=== PATIENT | female | born 1985 | race Caucasian/White ===

== ENCOUNTER 2021-11-24 13:41 | Inpatient (IN) ==
[2021-11-24] MEDS ORDERED: NS 0.9% 1000 ml BAG 1,000 ML IV ONE (16:03)
[2021-11-24 16:47] LABS: ABS Lymphocytes 1.4 10^3/ul (1.0-4.8); ABS Monocytes 0.8 10^3/ul (0-0.8); ABS Neutrophils 4.3 10^3/ul (1.5-7.7); Eosinophil % 0.6 %; Hematocrit 38 % (35-47); Hemoglobin 12.2 g/dL (12.0-16.0); Lymphocyte % 20.9 %; Mean Corpuscular HGB Conc 32 g/dL (31-36); Mean Corpuscular Hemoglobin 26 pg (27-31); Mean Corpuscular Volume 81 fL (80-97); Mean Platelet Volume 8.1 fL (7.4-10.4); Platelet Count 229 10^3/uL (150-450); Red Blood Count 4.73 10^6 /uL (3.70-4.87); Red Cell Distribution Width 14 % (10-15); White Blood Count 6.6 10^3/uL (3.5-10.8)
[2021-11-24 17:19] LABS: Albumin 3.5 g/dL (3.2-5.2); Albumin/Globulin Ratio 1.4 (1-3); C Reactive Protein 147.14 mg/L (<8.01); Calcium 7.6 mg/dL (8.6-10.3); Globulin 2.5 g/dL (2-4); Potassium 3.9 mmol/L (3.5-5.0); Total Bilirubin 0.8 mg/dL (0.2-1.0)
[2021-11-24] MEDS ORDERED: Prochlorperazine 5 mg/ml 2 ml VIAL (10 mg) IV ONE (17:30)
[2021-11-24] MEDS ORDERED: Iohexol 300 (CONTRAST) 10 ML SDV IV ONE (17:33)
[2021-11-24] MEDS ORDERED: Acetaminophen IV 1 GM/100ML 100 ML IV ONE (17:45)
[2021-11-24] MEDS ORDERED: Magnesium Hydroxide LIQ 30 ML UDC PO ONE (19:25)
[2021-11-24] MEDS ORDERED: Senna TAB 8.6 mg TAB PO PRN (19:27)
[2021-11-24] MEDS ORDERED: Remdesivir 100 mg Vial 100 MG in NS 0.9% 250 ml 230 ML IV SCH (19:30)
[2021-11-24] MEDS: D5NS 0.9% 1000 ml BAG 1,000 ML IV SCH (19:34)
[2021-11-24] MEDS ORDERED: RITONAVIR PO SCH (21:00)
[2021-11-24] MEDS ORDERED: NIRMATRELVIR PO SCH (21:00)
[2021-11-24] MEDS ORDERED: Remdesivir 100 mg Vial 200 MG in NS 0.9% 250 ml 210 ML IV ONE (22:00)
[2021-11-24] MEDS: Enoxaparin 40 MG/0.4 ML SYR SUBCUT SCH (22:23)
[2021-11-24] MEDS ORDERED: Dextrose 50% Syringe 50 ml 25 GM/50 ML SYRINGE IV PUSH PRN (23:34)
[2021-11-25] MEDS: D5NS 0.9% 1000 ml BAG 1,000 ML IV SCH ×3 (03:54→22:03)
[2021-11-25 07:05] LABS: Hematocrit 34 % (35-47); Hemoglobin 11.1 g/dL (12.0-16.0); Mean Corpuscular HGB Conc 33 g/dL (31-36); Mean Corpuscular Hemoglobin 26 pg (27-31); Mean Corpuscular Volume 79 fL (80-97); Mean Platelet Volume 8.1 fL (7.4-10.4); Platelet Count 227 10^3/uL (150-450); Red Blood Count 4.26 10^6 /uL (3.70-4.87); Red Cell Distribution Width 14 % (10-15); White Blood Count 2.8 10^3/uL (3.5-10.8)
[2021-11-25 07:17] LABS: Albumin/Globulin Ratio 1.4 (1-3); Calcium 7.2 mg/dL (8.6-10.3); Globulin 2.2 g/dL (2-4); Potassium 3.7 mmol/L (3.5-5.0); Total Bilirubin 0.4 mg/dL (0.2-1.0); Total Protein 5.2 g/dL (6.4-8.9); eGFR CKD-EPI 128.7 (>60)
[2021-11-25 08:44] LABS: ABS Eosinophils 0.1 10^3/ul (0-0.6); ABS Lymphocytes 1.6 10^3/ul (1.0-4.8); ABS Monocytes 0.4 10^3/ul (0-0.8); ABS Neutrophils 0.7 10^3/ul (1.5-7.7); Eosinophil % 4.9 %; Lymphocyte % 55.9 %; Nucleated Red Blood Cells % 0.3
[2021-11-25] MEDS: Magnesium Hydroxide LIQ 30 ML UDC PO SCH ×2 (08:46→21:58)
[2021-11-25] MEDS: Polyethylene Glycol 3350 17 GM PACKET PO SCH (09:35)
[2021-11-25 13:20] LABS: Magnesium 1.7 mg/dL (1.9-2.7); Phosphorus 1.8 mg/dL (2.5-5.0)
[2021-11-25] MEDS ORDERED: CALCIUM GLUCONATE 1GM/50ML NS 1 GM/50 ML BAG IV ONE (13:30)
[2021-11-25] MEDS ORDERED: Potassium Acid Phos 500 mg TAB PO ONE (13:37)
[2021-11-25] MEDS ORDERED: Magnesium Sulfate 2 gm BAG 2 GM/50 ML BAG IVPB ONE (13:44)
[2021-11-25 13:47] LABS: Vitamin D Total 25(OH) 9.2 ng/mL (20-50)
[2021-11-25] MEDS ORDERED: Cholecalciferol (VIT D3) 50,000 UNIT CAP (NF) PO SCH (14:00)
[2021-11-25] MEDS ORDERED: Potassium & Sodium Phos 250 mg = 1 PACKET PO ONE (15:46)
[2021-11-25] MEDS ORDERED: Potassium Chlor 20 meq TAB.ER PO ONE (15:47)
[2021-11-25] MEDS ORDERED: Remdesivir 100 mg Vial 100 MG in NS 0.9% 250 ml 230 ML IV ONE (18:00)
[2021-11-25] MEDS ORDERED: Senna TAB 8.6 mg TAB PO SCH (21:00)
[2021-11-25] MEDS: Enoxaparin 40 MG/0.4 ML SYR SUBCUT SCH (21:58)
[2021-11-26] MEDS ORDERED: Saline NASAL SPRAY 0.65% BTL BOTH NARES PRN (05:16)
[2021-11-26] MEDS: D5NS 0.9% 1000 ml BAG 1,000 ML IV SCH ×3 (06:07→18:15)
[2021-11-26 06:14] LABS: Hematocrit 34 % (35-47); Hemoglobin 11.2 g/dL (12.0-16.0); Mean Corpuscular HGB Conc 33 g/dL (31-36); Mean Corpuscular Hemoglobin 26 pg (27-31); Mean Corpuscular Volume 79 fL (80-97); Mean Platelet Volume 8.1 fL (7.4-10.4); Platelet Count 253 10^3/uL (150-450); Red Blood Count 4.26 10^6 /uL (3.70-4.87); Red Cell Distribution Width 14 % (10-15); White Blood Count 3.6 10^3/uL (3.5-10.8)
[2021-11-26 06:28] LABS: Albumin 3.3 g/dL (3.2-5.2); Albumin/Globulin Ratio 1.7 (1-3); Calcium 7.4 mg/dL (8.6-10.3); Phosphorus 1.4 mg/dL (2.5-5.0); Potassium 3.5 mmol/L (3.5-5.0); Total Bilirubin 0.3 mg/dL (0.2-1.0); Total Protein 5.3 g/dL (6.4-8.9); eGFR CKD-EPI 133.1 (>60)
[2021-11-26] MEDS ORDERED: Potassium Chlor 20 meq TAB.ER PO ONE (06:50)
[2021-11-26 08:14] LABS: ABS Eosinophils 0.1 10^3/ul (0-0.6); ABS Lymphocytes 2.3 10^3/ul (1.0-4.8); ABS Monocytes 0.4 10^3/ul (0-0.8); ABS Neutrophils 0.8 10^3/ul (1.5-7.7); Eosinophil % 3.6 %; Lymphocyte % 62.4 %; Nucleated Red Blood Cells % 0.2
[2021-11-26] MEDS ORDERED: POTASSIUM PHOSPHATE IVPB ONE (09:00)
[2021-11-26] MEDS ORDERED: Potassium & Sodium Phos 250 mg = 1 PACKET PO SCH ×2 (09:00)
[2021-11-26] MEDS ORDERED: NS IVPB ONE (09:00)
[2021-11-26] MEDS: Magnesium Hydroxide LIQ 30 ML UDC PO SCH ×3 (09:15→19:39)
[2021-11-26] MEDS: Polyethylene Glycol 3350 17 GM PACKET PO SCH (09:15)
[2021-11-26] MEDS: Potassium & Sodium Phos 250 mg = 1 PACKET PO SCH ×2 (09:15→12:33)
[2021-11-26] MEDS: Ondansetron 4 mg VIAL 2 MG/ML 2 ml VIAL IV PRN ×2 (09:36→14:31)
[2021-11-26] MEDS ORDERED: Remdesivir 100 mg Q24H MAINTENANCE DOSING IV ONE (14:00)
[2021-11-26] MEDS ORDERED: Acetaminophen IV 1 GM/100ML 100 ML IV PRN (17:17)
[2021-11-26] MEDS ORDERED: Polyethylene Glycol 3350 17 GM PACKET PO PRN (17:19)
[2021-11-26] MEDS ORDERED: Senna TAB 8.6 mg TAB PO PRN (17:20)
[2021-11-26 17:48] LABS: Albumin 3.6 g/dL (3.2-5.2); Albumin/Globulin Ratio 1.6 (1-3); Calcium 7.9 mg/dL (8.6-10.3); Direct Bilirubin 0.1 mg/dL (0.03-0.18); Globulin 2.3 g/dL (2-4); Indirect Bilirubin 0.3 mg/dL (0.3-1.0); Phosphorus 3.5 mg/dL (2.5-5.0); Potassium 4.3 mmol/L (3.5-5.0); Total Bilirubin 0.4 mg/dL (0.2-1.0); Total Protein 5.9 g/dL (6.4-8.9); eGFR CKD-EPI 128.7 (>60)
[2021-11-26] MEDS: Pantoprazole VIAL 40 MG VIAL IV SCH (22:45)
[2021-11-26] MEDS: Enoxaparin 40 MG/0.4 ML SYR SUBCUT SCH (22:48)
[2021-11-27] MEDS: D5NS 0.9% 1000 ml BAG 1,000 ML IV SCH ×2 (04:27→14:52)
[2021-11-27 05:54] LABS: ABS Eosinophils 0.1 10^3/ul (0-0.6); ABS Lymphocytes 2.3 10^3/ul (1.0-4.8); ABS Monocytes 0.4 10^3/ul (0-0.8); ABS Neutrophils 0.8 10^3/ul (1.5-7.7); Eosinophil % 3.5 %; Hematocrit 35 % (35-47); Hemoglobin 11.3 g/dL (12.0-16.0); Lymphocyte % 62.8 %; Mean Corpuscular HGB Conc 32 g/dL (31-36); Mean Corpuscular Hemoglobin 26 pg (27-31); Mean Corpuscular Volume 80 fL (80-97); Mean Platelet Volume 8.1 fL (7.4-10.4); Nucleated Red Blood Cells % 0.2; Platelet Count 246 10^3/uL (150-450); Red Blood Count 4.35 10^6 /uL (3.70-4.87); Red Cell Distribution Width 14 % (10-15); White Blood Count 3.7 10^3/uL (3.5-10.8)
[2021-11-27 06:03] LABS: Albumin 2.9 g/dL (3.2-5.2); Albumin/Globulin Ratio 1.4 (1-3); Calcium 7.4 mg/dL (8.6-10.3); Direct Bilirubin 0.1 mg/dL (0.03-0.18); Globulin 2.1 g/dL (2-4); Indirect Bilirubin 0.2 mg/dL (0.3-1.0); Magnesium 1.9 mg/dL (1.9-2.7); Phosphorus 2.6 mg/dL (2.5-5.0); Potassium 3.7 mmol/L (3.5-5.0); Total Bilirubin 0.3 mg/dL (0.2-1.0); eGFR CKD-EPI 131.6 (>60)
[2021-11-27] MEDS: Pantoprazole VIAL 40 MG VIAL IV SCH ×2 (09:11→22:46)
[2021-11-27] MEDS: Ondansetron 4 mg VIAL 2 MG/ML 2 ml VIAL IV PRN (09:11)
[2021-11-27] MEDS: Magnesium Hydroxide LIQ 30 ML UDC PO SCH ×2 (09:17→20:41)
[2021-11-27] MEDS: Potassium & Sodium Phos 250 mg = 1 PACKET PO SCH ×3 (09:18→20:36)
[2021-11-27] MEDS: Remdesivir 100 mg Q24H MAINTENANCE DOSING IV SCH (09:31)
[2021-11-27] MEDS: Morphine 2 MG/ML SYRINGE IV PRN ×2 (12:34→22:46)
[2021-11-27] MEDS: Calcium Carb (TUMS) 500 mg CHEW TAB PO SCH ×2 (17:22→20:42)
[2021-11-27] MEDS: Enoxaparin 40 MG/0.4 ML SYR SUBCUT SCH (20:45)
[2021-11-28] MEDS: D5NS 0.9% 1000 ml BAG 1,000 ML IV SCH ×2 (02:36→13:11)
[2021-11-28] MEDS: Ondansetron 4 mg VIAL 2 MG/ML 2 ml VIAL IV PRN ×3 (07:42→23:11)
[2021-11-28] MEDS: Pantoprazole VIAL 40 MG VIAL IV SCH ×2 (07:44→20:34)
[2021-11-28 09:14] LABS: ABS Eosinophils 0.1 10^3/ul (0-0.6); ABS Lymphocytes 2.1 10^3/ul (1.0-4.8); ABS Monocytes 0.4 10^3/ul (0-0.8); ABS Neutrophils 1.5 10^3/ul (1.5-7.7); Eosinophil % 3.5 %; Hematocrit 35 % (35-47); Hemoglobin 11.6 g/dL (12.0-16.0); Lymphocyte % 50.6 %; Mean Corpuscular HGB Conc 33 g/dL (31-36); Mean Corpuscular Hemoglobin 26 pg (27-31); Mean Corpuscular Volume 80 fL (80-97); Mean Platelet Volume 7.4 fL (7.4-10.4); Platelet Count 298 10^3/uL (150-450); Red Cell Distribution Width 14 % (10-15); White Blood Count 4.2 10^3/uL (3.5-10.8)
[2021-11-28 09:49] LABS: Calcium 7.5 mg/dL (8.6-10.3); Potassium 3.3 mmol/L (3.5-5.0); eGFR CKD-EPI 132.3 (>60)
[2021-11-28] MEDS: Magnesium Hydroxide LIQ 30 ML UDC PO SCH ×2 (10:19→20:30)
[2021-11-28] MEDS: Calcium Carb (TUMS) 500 mg CHEW TAB PO SCH ×2 (10:21→20:28)
[2021-11-28] MEDS: Potassium & Sodium Phos 250 mg = 1 PACKET PO SCH ×4 (10:21→20:25)
[2021-11-28] MEDS: Morphine 2 MG/ML SYRINGE IV PRN ×3 (10:59→20:33)
[2021-11-28 11:41] LABS: Magnesium 1.7 mg/dL (1.9-2.7); Phosphorus 2.2 mg/dL (2.5-5.0)
[2021-11-28] MEDS ORDERED: Magnesium Sulfate IV 3 GM in NS 0.9% 100 ml BAG 100 ML IVPB ONE (12:02)
[2021-11-28] MEDS ORDERED: Potassium Chloride LIQUID 20 MEQ/15 ML LIQUID PO ONE ×2 (12:03→12:16)
[2021-11-28] MEDS: Remdesivir 100 mg Q24H MAINTENANCE DOSING IV SCH (12:32)
[2021-11-28] MEDS ORDERED: Magnesium Sulfate 2 GM IV (Premix) IVPB ONE (13:00)
[2021-11-28] MEDS ORDERED: Magnesium Sulfate 1 GM IV 1 GM/100 ML BAG IV ONE (14:00)
[2021-11-28] MEDS: Enoxaparin 40 MG/0.4 ML SYR SUBCUT SCH (20:37)
[2021-11-29] MEDS: D5NS 0.9% 1000 ml BAG 1,000 ML IV SCH (04:54)
[2021-11-29 07:50] LABS: ABS Eosinophils 0.1 10^3/ul (0-0.6); ABS Lymphocytes 1.8 10^3/ul (1.0-4.8); ABS Monocytes 0.5 10^3/ul (0-0.8); ABS Neutrophils 1.7 10^3/ul (1.5-7.7); Eosinophil % 3.4 %; Hematocrit 36 % (35-47); Hemoglobin 11.5 g/dL (12.0-16.0); Lymphocyte % 44.3 %; Mean Corpuscular HGB Conc 32 g/dL (31-36); Mean Corpuscular Hemoglobin 26 pg (27-31); Mean Corpuscular Volume 79 fL (80-97); Mean Platelet Volume 7.6 fL (7.4-10.4); Platelet Count 320 10^3/uL (150-450); Red Blood Count 4.49 10^6 /uL (3.70-4.87); Red Cell Distribution Width 14 % (10-15); White Blood Count 4.2 10^3/uL (3.5-10.8)
[2021-11-29 08:01] LABS: Calcium 7.4 mg/dL (8.6-10.3); Magnesium 1.9 mg/dL (1.9-2.7); Phosphorus 2.4 mg/dL (2.5-5.0); Potassium 3.8 mmol/L (3.5-5.0); eGFR CKD-EPI 133.9 (>60)
[2021-11-29] MEDS ORDERED: Magnesium Sulfate IV 1GM/100ML 1 GM/100 ML BAG IV ONE (08:04)
[2021-11-29] MEDS: Potassium & Sodium Phos 250 mg = 1 PACKET PO SCH ×2 (09:14→12:25)
[2021-11-29] MEDS: Calcium Carb (TUMS) 500 mg CHEW TAB PO SCH ×2 (09:15→22:55)
[2021-11-29] MEDS: Pantoprazole VIAL 40 MG VIAL IV SCH ×2 (09:15→22:52)
[2021-11-29] MEDS: Magnesium Hydroxide LIQ 30 ML UDC PO SCH ×2 (09:17→22:54)
[2021-11-29] MEDS: Ondansetron 4 mg VIAL 2 MG/ML 2 ml VIAL IV PRN ×2 (09:27→22:57)
[2021-11-29 15:34] LABS: Calcium 7.7 mg/dL (8.6-10.3); Potassium 4.1 mmol/L (3.5-5.0); eGFR CKD-EPI 132.3 (>60)
[2021-11-29] MEDS: Enoxaparin 40 MG/0.4 ML SYR SUBCUT SCH (22:53)
[2021-11-30] MEDS: Calcium Carb (TUMS) 500 mg CHEW TAB PO SCH (07:37)
[2021-11-30] MEDS: Pantoprazole VIAL 40 MG VIAL IV SCH (07:37)
[2021-11-30] MEDS: Magnesium Hydroxide LIQ 30 ML UDC PO SCH (07:37)
[2021-11-30 08:53] LABS: ABS Eosinophils 0.1 10^3/ul (0-0.6); ABS Lymphocytes 2.3 10^3/ul (1.0-4.8); ABS Monocytes 0.5 10^3/ul (0-0.8); ABS Neutrophils 3.1 10^3/ul (1.5-7.7); Eosinophil % 2.1 %; Hematocrit 39 % (35-47); Hemoglobin 12.7 g/dL (12.0-16.0); Mean Corpuscular HGB Conc 33 g/dL (31-36); Mean Corpuscular Hemoglobin 26 pg (27-31); Mean Corpuscular Volume 78 fL (80-97); Mean Platelet Volume 7.6 fL (7.4-10.4); Nucleated Red Blood Cells % 0.2; Platelet Count 382 10^3/uL (150-450); Red Blood Count 4.94 10^6 /uL (3.70-4.87); Red Cell Distribution Width 14 % (10-15); White Blood Count 6.1 10^3/uL (3.5-10.8)
[2021-11-30 09:22] LABS: Calcium 7.9 mg/dL (8.6-10.3); Magnesium 2.2 mg/dL (1.9-2.7); Potassium 4.5 mmol/L (3.5-5.0); eGFR CKD-EPI 123.8 (>60)
[2021-11-30 10:04] VITALS: BP 101/57
== END 2021-11-30 11:30 | disposition home or self-care (01) | DRG 137 ==
LOC: ED 13:41 → EDHOLD 13:41 → SUATTDRO 19:17 → EDHOLD 23:23 → MED 23:48 → SUATTDRO 11-26 11:30
PROVIDERS: ADMIT Internal Medicine; ATTEND Internal Medicine

== ENCOUNTER 2024-06-12 14:24 | Inpatient (IN) ==
[2024-06-12] MEDS: Morphine 4 MG/ML VIAL (1 ml) IV ONE (18:41)
[2024-06-13] MEDS: Mineral Oil ENEMA 118 ML/BOTTLE BOTTLE PR ONE (00:50)
[2024-06-13] MEDS: cefTRIAXone 1 gm/50 mL D5W 1 GM/50 ML BAG IV ONE (02:16)
[2024-06-13] MEDS ORDERED: Dextrose 50% Syringe 50 ml 25 GM/50 ML SYRINGE ONE (08:22)
[2024-06-13] MEDS: Dextrose 50% Syringe 50 ml 25 GM/50 ML SYRINGE IV PUSH ONE (08:23)
[2024-06-13] MEDS: Ondansetron 4 mg VIAL 2 MG/ML 2 ml VIAL IV ONE (08:40)
[2024-06-13] MEDS ORDERED: Acetaminophen IV 1 GM/100ML 1,000 MG/100 ML BAG IV PRN (16:24)
[2024-06-13 18:19] LABS: ABS Eosinophils 0.1 10^3/uL (0.0-0.5); ABS Lymphocytes 1.4 10^3/uL (1.0-4.8); ABS Monocytes 0.4 10^3/uL (0.0-0.9); Eosinophil % 1.9 %; Hematocrit 43.7 % (35-45); Hemoglobin 13.5 g/dL (11.5-14.3); Lymphocyte % 23.9 %; Mean Corpuscular Hemoglobin 26.8 pg (27-33); Mean Corpuscular Hgb Conc 30.9 g/dL (31-36); Mean Corpuscular Volume 86.6 fL (80-97); Mean Platelet Volume 7.7 fL (7.5-11.2); Nucleated Red Blood Cells % 0.1 %/100WBC (0.0-0.8); Platelet Count 293 10^3/uL (150-450); Red Blood Count 5.05 10^6/uL (3.63-4.92); Red Cell Distribution Width 13.5 % (12-17)
[2024-06-13] MEDS: Polyethylene Glycol 3350 17 GM PACKET PO SCH (18:37)
[2024-06-13 19:28] LABS: ALT 7 U/L (7-52); Albumin/Globulin Ratio 1.8 (1-3); Alkaline Phosphatase 51 U/L (35-149); Anion Gap 10 mmol/L (2-16); Blood Urea Nitrogen 3 mg/dL (6-24); CO2 Carbon Dioxide 16 mmol/L (22-32); Calcium 8.5 mg/dL (8.6-10.3); Chloride 104 mmol/L (101-111); Creatinine, Serum 0.55 mg/dL (0.51-0.95); Globulin 2.2 g/dL (2-4); Glucose 80 mg/dL (70-100); Magnesium 1.7 mg/dL (1.9-2.7); Sodium 130 mmol/L (135-145); Total Bilirubin 0.6 mg/dL (0.2-1.0); Total Protein 6.2 g/dL (6.4-8.9)
[2024-06-13 20:50] LABS: Potassium Redraw 4.3 mmol/L (3.5-5.0)
[2024-06-13] MEDS: Senna TAB 8.6 mg TAB PO SCH (21:54)
[2024-06-14] MEDS: Nystatin TOP POWDER 15 GM BTL TOPICAL SCH (00:47)
[2024-06-14] MEDS: cefTRIAXone 1 gm/50 mL D5W 1 GM/50 ML BAG IV SCH (06:23)
[2024-06-14 07:38] LABS: ABS Eosinophils 0.2 10^3/uL (0.0-0.5); ABS Lymphocytes 1.9 10^3/uL (1.0-4.8); ABS Monocytes 0.4 10^3/uL (0.0-0.9); ABS Neutrophils 3.9 10^3/uL (1.5-7.6); Eosinophil % 2.4 %; Hematocrit 39.8 % (35-45); Hemoglobin 13.4 g/dL (11.5-14.3); Lymphocyte % 29.2 %; Mean Corpuscular Hemoglobin 27.3 pg (27-33); Mean Corpuscular Hgb Conc 33.6 g/dL (31-36); Mean Corpuscular Volume 81.1 fL (80-97); Mean Platelet Volume 7.5 fL (7.5-11.2); Platelet Count 346 10^3/uL (150-450); Red Cell Distribution Width 12.9 % (12-17); White Blood Count 6.4 10^3/uL (3.8-11.8)
[2024-06-14 08:13] LABS: Albumin 3.8 g/dL (3.2-5.2); Albumin/Globulin Ratio 1.7 (1-3); Calcium 8.6 mg/dL (8.6-10.3); Creatinine, Serum 0.5 mg/dL (0.51-0.95); Globulin 2.2 g/dL (2-4); Magnesium 1.8 mg/dL (1.9-2.7); Potassium 4.1 mmol/L (3.5-5.0); Total Bilirubin 0.5 mg/dL (0.2-1.0); eGFR CKD-EPI 123.8 (>60)
[2024-06-14] MEDS: Sodium Phosphate ADULT ENEMA 133 ML BTL PR ONE (14:23)
[2024-06-14] MEDS: Glycerin ADULT 2.4 gm SUPP PR PRN (14:37)
[2024-06-14] MEDS ORDERED: Lactated Ringers 1000 ml BAG 1,000 ML IV ONE (19:41)
[2024-06-14] MEDS: Lactated Ringers 1000 ml BAG 1,000 ML IV ONE (19:55)
[2024-06-15] MEDS: PEG 3000 GI LAVAGE 1 GALLON PO ONE (10:53)
[2024-06-16] MEDS: Morphine 2 MG/ML SYRINGE IV ONE (18:40)
[2024-06-17 00:49] LABS: Urine Appearance Clear; Urine Bilirubin Negative (Negative); Urine Blood Negative (Negative); Urine Color Light-Yellow; Urine Glucose Negative (Negative); Urine Ketones Negative (Negative); Urine Nitrite Negative (Negative); Urine Protein Negative (Negative); Urine Specific Gravity 1.011 (1.002-1.030); Urine Urobilinogen Negative (Negative)
[2024-06-17 00:55] LABS: Urine Bacteria Absent /HPF (Absent); Urine Red Blood Cell Trace(0-2/hpf) /HPF (0-Trace); Urine Squamous Epithelial Cell Present /HPF (Absent); Urine White Blood Cell 1+(6-10/hpf) /HPF (0-Trace)
[2024-06-17] MEDS: Polyethylene Glycol 3350 17 GM PACKET PO PRN (18:39)
[2024-06-18] MEDS: HYDROmorphone 1 MG/1 ML SYRINGE IV SLOW PU ONE (04:15)
[2024-06-18] MEDS: Iohexol 300 (CONTRAST) 10 ML SDV IV ONE (04:36)
[2024-06-18] MEDS: NS 0.9% 1000 ml BAG 1,000 ML IV ONE (06:55)
[2024-06-19] MEDS: NS 0.9% 500 ml BAG 500 ML IV SCH (12:08)
[2024-06-21 09:59] VITALS: BP 96/63
== END 2024-06-21 15:15 | disposition home or self-care (01) | DRG 751 ==
LOC: EDHOLD 14:24 → ED 14:24 → SUATTDRO 06-13 13:09 → MED 06-13 15:58 → SUATTDRO 06-15 13:18
PROVIDERS: ADMIT Student in an Organized Health Care Education/Training Program; ATTEND Student in an Organized Health Care Education/Training Program